=== PATIENT | male | born 1990 | race Caucasian/White ===

== ENCOUNTER 2021-06-29 12:13 | Inpatient (IN) ==
[2021-06-29 13:15] LABS: INR 2.04 (0.86-1.15)
[2021-06-29] MEDS ORDERED: Pantoprazole 80 mg in NS BAG 80 MG/250 ML BAG IV ONE (13:25)
[2021-06-29] MEDS ORDERED: Pantoprazole VIAL 40 MG VIAL IV ONE (13:25)
[2021-06-29] MEDS ORDERED: cefTRIAXone 1 gm/50 mL NS BAG 1 GM/50 ML BAG IV ONE (13:25)
[2021-06-29 13:26] LABS: Hematocrit 25 % (42-52); Hemoglobin 7.7 g/dL (14.0-18.0); Mean Corpuscular HGB Conc 31 g/dL (31-36); Mean Corpuscular Hemoglobin 19 pg (27-31); Mean Corpuscular Volume 61 fL (80-94); Mean Platelet Volume 8.7 fL (7.4-10.4); Platelet Count 154 10^3/uL (150-450); Red Blood Count 4.12 10^6 /uL (4.18-5.48); Red Cell Distribution Width 27 % (10-15); White Blood Count 9.3 10^3/uL (3.5-10.8)
[2021-06-29 13:56] LABS: ALT 30 U/L (7-52); AST 54 U/L (13-39); Albumin 3.7 g/dL (3.2-5.2); Albumin/Globulin Ratio 1.1 (1-3); Alkaline Phosphatase 89 U/L (35-149); Anion Gap 7 mmol/L (2-11); Blood Urea Nitrogen 20 mg/dL (6-24); CO2 Carbon Dioxide 23 mmol/L (22-32); Calcium 8.9 mg/dL (8.6-10.3); Chloride 106 mmol/L (101-111); EGFR African American 136.4 (>60); EGFR Non-African American 112.8 (>60); Globulin 3.5 g/dL (2-4); Glucose 112 mg/dL (70-100); Lipase 16 U/L (11.0-82.0); Potassium 4.4 mmol/L (3.5-5.0); Sodium 136 mmol/L (135-145); Total Protein 7.2 g/dL (6.4-8.9)
[2021-06-29] MEDS ORDERED: Octreotide Acetate 50 MCG in NS 0.9% 50 ML 50 ML IV ONE (14:06)
[2021-06-29] MEDS ORDERED: NS 0.9% 50 ML 0 ML ONE (14:16)
[2021-06-29 14:48] LABS: Alcohol, S < 13 mg/dL (<13)
[2021-06-29] MEDS ORDERED: Ondansetron 4 mg VIAL 2 MG/ML 2 ml VIAL IV ONE (15:04)
[2021-06-29] MEDS: Octreotide Acetate 500 MCG in NS 0.9% 100 ml BAG 100 ML IV SCH ×2 (15:13→23:26)
[2021-06-29 15:25] LABS: ABS Basophils 0.1 10^3/ul (0-0.2); ABS Lymphocytes 3.1 10^3/ul (1.0-4.8); ABS Monocytes 0.8 10^3/ul (0-0.8); ABS Neutrophils 5.4 10^3/ul (1.5-7.7); Anisocytosis 2+; Eosinophil % 0.3 %; Hypochromasia 2+; Lymphocyte % 33.1 %; Nucleated Red Blood Cells % 0.2; Polychromasia 1+
[2021-06-29] MEDS ORDERED: Acetaminophen IV 1 GM/100ML 100 ML IV ONE (15:32)
[2021-06-29 15:35] LABS: Magnesium 1.7 mg/dL (1.9-2.7); Phosphorus 2.2 mg/dL (2.5-5.0)
[2021-06-29] MEDS ORDERED: Ondansetron 4 mg VIAL 2 MG/ML 2 ml VIAL IV PRN (16:01)
[2021-06-29 17:05] LABS: Rapid COVID-19 Molecular Undetected (Undetected)
[2021-06-29] MEDS ORDERED: Phytonadione SUBCUT/IM Adult 10 MG/ML AMP (IM or SQ not preferred route) SUBCUT ONE (17:40)
[2021-06-29] MEDS ORDERED: Magnesium Sulfate IV 3 GM in NS 0.9% 100 ml BAG 100 ML IVPB ONE (18:00)
[2021-06-29] MEDS ORDERED: NS 0.9% 250 ml 250 ML ONE (18:29)
[2021-06-29] MEDS ORDERED: Potassium Phosphate IV 15 MMOLE in NS 0.9% 250 ml 250 ML IVPB ONE (18:30)
[2021-06-29] MEDS ORDERED: Midazolam 2 mg/2 ml VIAL 1 mg/ml 2 ml VIAL (2 mg) ONE (20:05)
[2021-06-29] MEDS ORDERED: fentaNYL 100 mcg/2 ml 50 MCG/ML VIAL ONE (20:05)
[2021-06-29] MEDS ORDERED: Lidocaine 2% PF 5 ML VIAL ONE (20:05)
[2021-06-29] MEDS ORDERED: Propofol 10 MG/ML 20 ML BTL ONE (20:05)
[2021-06-30] MEDS ORDERED: Pantoprazole 80 mg in NS BAG 80 MG/250 ML BAG IV SCH
[2021-06-30 06:14] LABS: INR 1.89 (0.86-1.15)
[2021-06-30 06:18] LABS: Hematocrit 23 % (42-52); Hemoglobin 7.4 g/dL (14.0-18.0); Mean Corpuscular HGB Conc 32 g/dL (31-36); Mean Corpuscular Hemoglobin 21 pg (27-31); Mean Corpuscular Volume 66 fL (80-94); Red Blood Count 3.54 10^6 /uL (4.18-5.48); Red Cell Distribution Width 30 % (10-15); White Blood Count 5.5 10^3/uL (3.5-10.8)
[2021-06-30 06:32] LABS: Calcium 7.8 mg/dL (8.6-10.3); EGFR Non-African American 106.6 (>60); Magnesium 2.2 mg/dL (1.9-2.7); Phosphorus 2.8 mg/dL (2.5-5.0); Potassium 4.1 mmol/L (3.5-5.0); Total Bilirubin 1.2 mg/dL (0.2-1.0)
[2021-06-30 06:52] LABS: ABS Basophils 0.1 10^3/ul (0-0.2); ABS Eosinophils 0.1 10^3/ul (0-0.6); ABS Lymphocytes 2.6 10^3/ul (1.0-4.8); ABS Monocytes 0.6 10^3/ul (0-0.8); ABS Neutrophils 2.1 10^3/ul (1.5-7.7); Eosinophil % 2.2 %; Lymphocyte % 46.8 %; Mean Platelet Volume 8.6 fL (7.4-10.4); Nucleated Red Blood Cells % 0.2; Platelet Count 105 10^3/uL (150-450)
[2021-06-30] MEDS: Octreotide Acetate 500 MCG in NS 0.9% 100 ml BAG 100 ML IV SCH ×3 (08:39→19:19)
[2021-06-30] MEDS: Pantoprazole VIAL 40 MG VIAL IV SCH ×2 (08:45→21:47)
[2021-06-30] MEDS: Multivitamins/Minerals TAB PO SCH (08:48)
[2021-06-30 12:51] LABS: Hematocrit 23 % (42-52); Hemoglobin 7.3 g/dL (14.0-18.0); Mean Corpuscular HGB Conc 32 g/dL (31-36); Mean Corpuscular Hemoglobin 21 pg (27-31); Mean Corpuscular Volume 66 fL (80-94); Red Cell Distribution Width 30 % (10-15); White Blood Count 4.5 10^3/uL (3.5-10.8)
[2021-06-30 13:35] LABS: Mean Platelet Volume 8.6 fL (7.4-10.4); Platelet Count 103 10^3/uL (150-450)
[2021-06-30] MEDS ORDERED: cefTRIAXone 1 gm/50 mL NS BAG 1 GM/50 ML BAG IVPB SCH (15:00)
[2021-07-01 05:30] LABS: INR 1.62 (0.86-1.15)
[2021-07-01 05:35] LABS: Hematocrit 24 % (42-52); Hemoglobin 7.5 g/dL (14.0-18.0); Mean Corpuscular HGB Conc 31 g/dL (31-36); Mean Corpuscular Hemoglobin 21 pg (27-31); Mean Corpuscular Volume 67 fL (80-94); Red Cell Distribution Width 31 % (10-15); White Blood Count 4.7 10^3/uL (3.5-10.8)
[2021-07-01] MEDS: Octreotide Acetate 500 MCG in NS 0.9% 100 ml BAG 100 ML IV SCH (05:39)
[2021-07-01 05:44] LABS: EGFR African American 149.3 (>60); EGFR Non-African American 123.4 (>60); Magnesium 2.1 mg/dL (1.9-2.7); Potassium 3.9 mmol/L (3.5-5.0)
[2021-07-01 05:59] LABS: ABS Eosinophils 0.1 10^3/ul (0-0.6); ABS Lymphocytes 2.7 10^3/ul (1.0-4.8); ABS Monocytes 0.4 10^3/ul (0-0.8); ABS Neutrophils 1.5 10^3/ul (1.5-7.7); Eosinophil % 1.8 %; Lymphocyte % 57.8 %; Mean Platelet Volume 9.6 fL (7.4-10.4); Nucleated Red Blood Cells % 0.1; Platelet Count 126 10^3/uL (150-450)
[2021-07-01] MEDS: Multivitamins/Minerals TAB PO SCH (07:59)
[2021-07-01] MEDS: Pantoprazole VIAL 40 MG VIAL IV SCH (07:59)
[2021-07-01] MEDS ORDERED: Lactated Ringers 1000 ml BAG 1,000 ML IV ONE ×2 (08:09→09:46)
[2021-07-01 08:20] VITALS: BP 122/71
[2021-07-01] MEDS ORDERED: Lactated Ringers 1000 ml BAG 1,000 ML IV SCH (10:00)
== END 2021-07-01 12:00 | disposition left against medical advice (07) | DRG 280 ==
LOC: ED 12:13 → ICU 17:51
PROVIDERS: ADMIT Internal Medicine Critical Care Medicine; ATTEND Internal Medicine
PROC: O.GIEGD (2021-06-29 20:00)

== ENCOUNTER 2021-09-09 12:43 | Inpatient (IN) ==
[2021-09-09 14:20] LABS: Hematocrit 20 % (42-52); Hemoglobin 6.1 g/dL (14.0-18.0); Mean Corpuscular HGB Conc 31 g/dL (31-36); Mean Corpuscular Hemoglobin 21 pg (27-31); Mean Corpuscular Volume 67 fL (80-94); Platelet Count 120 10^3/uL (150-450); Red Blood Count 2.96 10^6 /uL (4.18-5.48); Red Cell Distribution Width 33 % (10-15); White Blood Count 5.6 10^3/uL (3.5-10.8)
[2021-09-09 14:32] LABS: Albumin 3.7 g/dL (3.2-5.2); Albumin/Globulin Ratio 0.9 (1-3); C Reactive Protein 6.15 mg/L (<8.01); Calcium 8.9 mg/dL (8.6-10.3); Magnesium 1.9 mg/dL (1.9-2.7); Total Bilirubin 0.9 mg/dL (0.2-1.0); Total Protein 7.7 g/dL (6.4-8.9); eGFR CKD-EPI 132.2 (>60)
[2021-09-09 14:38] LABS: ABS Basophils 0.1 10^3/ul (0-0.2); ABS Eosinophils 0.1 10^3/ul (0-0.6); ABS Lymphocytes 1.6 10^3/ul (1.0-4.8); ABS Monocytes 0.5 10^3/ul (0-0.8); ABS Neutrophils 3.3 10^3/ul (1.5-7.7); Eosinophil % 1.1 %; Lymphocyte % 28.4 %; Nucleated Red Blood Cells % 0.6
[2021-09-09] MEDS ORDERED: Iohexol 300 (CONTRAST) 10 ML SDV IV ONE (14:45)
[2021-09-09 14:52] LABS: Urine Appearance Clear; Urine Bilirubin Negative (Negative); Urine Blood Negative (Negative); Urine Color Amber; Urine Glucose Negative (Negative); Urine Ketones Trace (Negative); Urine Nitrite Negative (Negative); Urine Protein 1+(30 mg/dL) (Negative); Urine Specific Gravity 1.028 (1.002-1.030); Urine Urobilinogen Positive (Negative)
[2021-09-09 14:55] LABS: Urine Bacteria Absent (Absent); Urine Red Blood Cell Trace(0-2/hpf) (Absent); Urine White Blood Cell Trace(0-5/hpf) (Absent)
[2021-09-09] MEDS ORDERED: Octreotide Acetate 50 MCG in NS 0.9% 50 ML 50 ML IV ONE (17:35)
[2021-09-09] MEDS ORDERED: Pantoprazole 80 mg in NS BAG 80 MG/250 ML BAG IV ONE (17:35)
[2021-09-09] MEDS ORDERED: Octreotide Acetate 500 MCG in NS 0.9% 100 ml BAG 100 ML IV ONE (18:00)
[2021-09-09 18:04] LABS: INR 1.76 (0.86-1.15)
[2021-09-09] MEDS ORDERED: Octreotide Acetate 500 MCG in NS 0.9% 100 ML IV ONE (19:00)
[2021-09-09] MEDS ORDERED: Pantoprazole VIAL 40 MG VIAL IV ONE (19:17)
[2021-09-09] MEDS ORDERED: cefTRIAXone 1 gm/50 mL NS BAG 1 GM/50 ML BAG IV ONE (19:18)
[2021-09-09] MEDS ORDERED: Octreotide Acetate 500 MCG in NS 0.9% 100 ml BAG 100 ML IV SCH (20:00)
[2021-09-09 20:13] LABS: Rapid COVID-19 Molecular Undetected (Undetected)
[2021-09-09] MEDS ORDERED: Thiamine 100 MG/ML 2 ml VIAL (200 mg) IM ONE (22:59)
[2021-09-09] MEDS ORDERED: LORazepam 2 mg VIAL 1 ml IV PUSH SCH (23:00)
[2021-09-09] MEDS: Lactulose 30 ml UDC PO SCH (23:01)
[2021-09-09] MEDS ORDERED: Lorazepam PYXIS KEY PRN (23:11)
[2021-09-09 23:59] LABS: ABS Basophils 0.1 10^3/ul (0-0.2); ABS Eosinophils 0.1 10^3/ul (0-0.6); ABS Lymphocytes 1.5 10^3/ul (1.0-4.8); ABS Monocytes 0.5 10^3/ul (0-0.8); ABS Neutrophils 2.3 10^3/ul (1.5-7.7); Eosinophil % 2.3 %; Hematocrit 21 % (42-52); Hemoglobin 6.3 g/dL (14.0-18.0); Lymphocyte % 33.9 %; Mean Corpuscular HGB Conc 31 g/dL (31-36); Mean Corpuscular Hemoglobin 21 pg (27-31); Mean Corpuscular Volume 69 fL (80-94); Mean Platelet Volume 8.3 fL (7.4-10.4); Nucleated Red Blood Cells % 0.4; Platelet Count 99 10^3/uL (150-450); Red Blood Count 2.97 10^6 /uL (4.18-5.48); Red Cell Distribution Width 32 % (10-15); White Blood Count 4.5 10^3/uL (3.5-10.8)
[2021-09-10] MEDS: Octreotide Acetate 500 MCG in NS 0.9% 100 ml BAG 100 ML IV SCH ×3 (05:33→23:59)
[2021-09-10 06:37] LABS: INR 1.73 (0.86-1.15)
[2021-09-10 06:48] LABS: ABS Basophils 0.1 10^3/ul (0-0.2); ABS Eosinophils 0.1 10^3/ul (0-0.6); ABS Lymphocytes 1.4 10^3/ul (1.0-4.8); ABS Monocytes 0.2 10^3/ul (0-0.8); ABS Neutrophils 1.3 10^3/ul (1.5-7.7); Eosinophil % 2.8 %; Hematocrit 22 % (42-52); Hemoglobin 6.7 g/dL (14.0-18.0); Lymphocyte % 45.5 %; Mean Corpuscular HGB Conc 31 g/dL (31-36); Mean Corpuscular Hemoglobin 22 pg (27-31); Mean Corpuscular Volume 71 fL (80-94); Nucleated Red Blood Cells % 1.2; Platelet Count 95 10^3/uL (150-450); Red Blood Count 3.06 10^6 /uL (4.18-5.48); Red Cell Distribution Width 31 % (10-15); White Blood Count 3.1 10^3/uL (3.5-10.8)
[2021-09-10 06:49] LABS: Albumin 3.2 g/dL (3.2-5.2); Albumin/Globulin Ratio 0.9 (1-3); Calcium 8.3 mg/dL (8.6-10.3); Direct Bilirubin 0.4 mg/dL (0.03-0.18); Globulin 3.5 g/dL (2-4); Indirect Bilirubin 0.8 mg/dL (0.3-1.0); Magnesium 1.9 mg/dL (1.9-2.7); Potassium 4.1 mmol/L (3.5-5.0); Total Bilirubin 1.2 mg/dL (0.2-1.0); Total Protein 6.7 g/dL (6.4-8.9); eGFR CKD-EPI 122.5 (>60)
[2021-09-10] MEDS ORDERED: Pneumococcal Vac 23-Polyvalent IM ONE (09:00)
[2021-09-10] MEDS ORDERED: Flu vaccine *QUAD* 2021-22* 0.5 ML SYRINGE IM ONE (09:00)
[2021-09-10] MEDS ORDERED: fentaNYL 100 mcg/2 ml 50 MCG/ML VIAL ONE (10:36)
[2021-09-10] MEDS ORDERED: Midazolam 10 mg/10 ml VIAL 1 mg/ml 10 ml VIAL (10 mg) ONE (10:36)
[2021-09-10] MEDS: Multivitamins/Minerals TAB PO SCH (12:34)
[2021-09-10] MEDS: Lactulose 30 ml UDC PO SCH ×2 (13:02→20:59)
[2021-09-10] MEDS: Pantoprazole 80 mg in NS BAG 80 MG/250 ML BAG IV SCH (15:40)
[2021-09-10 16:08] LABS: Hematocrit 21 % (42-52); Hemoglobin 6.5 g/dL (14.0-18.0); Mean Corpuscular HGB Conc 31 g/dL (31-36); Mean Corpuscular Hemoglobin 22 pg (27-31); Mean Corpuscular Volume 71 fL (80-94); Mean Platelet Volume 8.9 fL (7.4-10.4); Platelet Count 118 10^3/uL (150-450); Red Blood Count 2.97 10^6 /uL (4.18-5.48); Red Cell Distribution Width 31 % (10-15); White Blood Count 2.8 10^3/uL (3.5-10.8)
[2021-09-10] MEDS ORDERED: COVID-19 VACCINE, MRNA(MODERNA)/PF 100 MCG/0.5 ML IM ONE (17:45)
[2021-09-10 19:58] LABS: Hematocrit 27 % (42-52); Hemoglobin 8.2 g/dL (14.0-18.0)
[2021-09-10] MEDS ORDERED: cefTRIAXone 1 gm/50 mL NS BAG 1 GM/50 ML BAG IVPB SCH (21:00)
[2021-09-10] MEDS ORDERED: Senna TAB 8.6 mg TAB PO SCH (21:00)
[2021-09-11] MEDS: Pantoprazole 80 mg in NS BAG 80 MG/250 ML BAG IV SCH ×2 (03:33)
[2021-09-11 06:23] LABS: INR 1.68 (0.86-1.15)
[2021-09-11] MEDS ORDERED: Polyethylene Glycol 3350 17 GM PACKET PO SCH (08:00)
[2021-09-11] MEDS ORDERED: Pantoprazole VIAL 40 MG VIAL IV SCH ×2 (09:00)
[2021-09-11] MEDS: Multivitamins/Minerals TAB PO SCH (09:58)
[2021-09-11] MEDS: Lactulose 30 ml UDC PO SCH (09:58)
[2021-09-11 10:35] LABS: Albumin 3.3 g/dL (3.2-5.2); Albumin/Globulin Ratio 0.9 (1-3); Calcium 8.1 mg/dL (8.6-10.3); Direct Bilirubin 0.4 mg/dL (0.03-0.18); Globulin 3.6 g/dL (2-4); Indirect Bilirubin 0.7 mg/dL (0.3-1.0); Magnesium 1.9 mg/dL (1.9-2.7); Potassium 3.4 mmol/L (3.5-5.0); Total Bilirubin 1.1 mg/dL (0.2-1.0); Total Protein 6.9 g/dL (6.4-8.9)
[2021-09-11 10:39] LABS: Hematocrit 25 % (42-52); Hemoglobin 7.8 g/dL (14.0-18.0); Mean Corpuscular HGB Conc 31 g/dL (31-36); Mean Corpuscular Hemoglobin 23 pg (27-31); Mean Corpuscular Volume 72 fL (80-94); Mean Platelet Volume 8.5 fL (7.4-10.4); Platelet Count 115 10^3/uL (150-450); Red Blood Count 3.47 10^6 /uL (4.18-5.48); Red Cell Distribution Width 32 % (10-15)
[2021-09-11 11:18] LABS: ABS Eosinophils 0.1 10^3/ul (0-0.6); ABS Lymphocytes 0.8 10^3/ul (1.0-4.8); ABS Monocytes 0.4 10^3/ul (0-0.8); ABS Neutrophils 2.6 10^3/ul (1.5-7.7); ABS Nucleated RBC 0.1 10^3/ul; Eosinophil % 2.5 %; Lymphocyte % 20.4 %; Microcytosis 2+; Nucleated Red Blood Cells % 1.2
[2021-09-11 11:19] LABS: Anisocytosis 3+; Hypochromasia 3+; Polychromasia 2+
[2021-09-11 15:09] VITALS: BP 132/71
== END 2021-09-11 16:35 | disposition home or self-care (01) | DRG 241 ==
LOC: ED 12:43 → EDHOLD 19:32 → MEDTELE 21:12
PROVIDERS: ADMIT Internal Medicine; ATTEND Internal Medicine